=== PATIENT | male | born 1985 | race Caucasian/White ===

== ENCOUNTER 2024-11-16 10:31 | Emergency (ER) | payer BC, SELFPAY ==
[2024-11-16 10:34] VITALS: BP 161/96; PULSE 104; RESP 20; TEMP 36.8; O2SAT 97; BMI 43.8
--- NOTE | 2024-11-16 10:52 | ED.GENADULT ---
HPI - General Adult General Chief complaint: Flank Pain Stated complaint: kidney stone attack Time Seen by Provider: 11/16/24 10:51 History of Present Illness HPI narrative: Pt reports he has had 40 minute waves of back pain since yesterday . Pt recently returned from travel, of 7 hours driving yesterday. Pt also feels as if some abnormal urine production. Pain is centered on lower left love handle. Pt reports pain can only be relieved when he sits on the toilet. Rates pain currently 12/26. Pt feels constipated for me. Reports his last normal BM was on Friday night when he pooped so hard that the tip of my chely went numb. 39-year-old man presenting to the emergency department with concern of ?kidney stone attack?. Does not have a personal or family history of kidney stones. Began yesterday after a long drive. Thought maybe he just done something to his back. Had a tough night of continued waves of pain. Describes a squeezing in the left flank area. He only gets relief of this discomfort when he goes to sit on the toilet and has actually managed to fall asleep on the toilet overnight sounds like repeatedly. Two days ago had an explosive bowel movement and then a very small amount yesterday. Not passing gas. Does not have a history of abdominal surgeries. He would appreciate some relief of the pain. He is not nauseated. No hematuria noted. In fact he only has been able to get trace amounts are small amounts of urine out with each effort. Related Data Home Medications ?Medication ?Instructions ?Recorded ?Confirmed vit C 250 mg-vit E 90 mg-zinc 40 1 tab PO BID 11/16/24 11/16/24 mg-copper 1 [id number] capsule ([facility] AREDS-2) Previous Rx's ?Medication ?Instructions ?Recorded tamsulosin 0.4 mg capsule (Flomax) 0.4 mg PO DAILY #15 caps 11/16/24 Allergies Allergy/AdvReac Type Severity Reaction Status Date / Time No Known Drug Allergies Allergy Verified 11/16/24 10:41 Review of Systems Status of ROS: Reports: 6 or more systems reviewed and unremarkable except as noted in History and below PFSH PFSH Social History Smoking Status: Never smoker Do you use any of these nicotine containing products: None Second hand tobacco smoke exposure: No How often do you have a drink containing alcohol: monthly or less How many standard drinks containing alcohol do you have on a typical day: 1 or 2 How often do you have six or more drinks on one occasion: Never AUDIT-C Alcohol total score: 1 Non-prescribed substance use: denies use Exam Narrative: Exam Narrative: Pleasant. Seems uncomfortable. Skin is warm and dry. Well-perfused peripherally. No extremity edema. Abdomen is overweight. Soft. He is sore to palpation in the left low abdomen without peritoneal signs. Heart in elevated rate and regular rhythm. Lungs are clear. Const: Vital Signs, click to edit/add: Vital Signs - 24 hr 11/16/24 10:34 Temperature 98.3 F Pulse Rate [Pulse Oximeter] 104 H Respiratory Rate 20 Blood Pressure [Ri ght Upper Arm] 161/96 H Pulse Oximetry 97 Oxygen Delivery Me thod Room Air Documenting provider has reviewed patient's vital signs: yes Course Vital Signs Vital signs: Initial Vital Signs Temperature 98.3 F 11/16/24 10:34 Temperature Source Temporal Artery Scan 11/16/24 10:34 Pulse Rate 104 H 11/16/24 10:34 Respiratory Rate 20 11/16/24 10:34 Blood Pressure 161/96 H 11/16/24 10:34 Blood Pressure Mean 117 H 11/16/24 10:34 Blood Pressure Position Sitting 11/16/24 10:34 Pulse Oximetry 97 11/16/24 10:34 Oxygen Delivery Method Room Air 11/16/24 10:34 Vital Signs Temperature 98.3 F 11/16/24 10:34 Pulse Rate 104 H 11/16/24 10:34 Respiratory Rate 20 11/16/24 10:34 Blood Pressure 161/96 H 11/16/24 10:34 Pulse Oximetry 97 11/16/24 10:34 Oxygen Delivery Method Room Air 11/16/24 10:34 Temperature 98.3 F 11/16/24 10:34 Pulse Rate 82 11/16/24 12:56 Respiratory Rate 18 11/16/24 12:56 Blood Pressure 139/75 11/16/24 12:56 Pulse Oximetry 99 11/16/24 12:56 Oxygen Delivery Method Room Air 11/16/24 12:56 Medications Administered Medications: Discontinued Medications Generic Name Dose Route Start Last Admin Trade Name Freq PRN Reason Stop Dose Admin Hydromorphone HCl 0.5 mg 11/16/24 14:02 11/16/24 14:09 Hydromorphone 0.5 Mg/0.5 Ml Inj IVP 11/16/24 14:03 0.5 mg ONCE ONE Administration Sodium Chloride 500 mls @ 500 mls/hr 11/16/24 11:25 11/16/24 12:55 0.9 % Sodium Chloride 500 Ml IV 11/16/24 12:24 Infused .Q1H ONE Infusion Ketorolac Tromethamine 30 mg 11/16/24 11:00 11/16/24 11:32 Ketorolac 30 Mg/Ml Inj IVP 11/16/24 11:01 30 mg ONCE ONE Administration Morphine Sulfate 4 mg 11/16/24 11:00 11/16/24 11:32 Morphine 4 Mg/Ml Inj IVP 11/16/24 11:01 4 mg ONCE ONE Administration Morphine Sulfate 4 mg 11/16/24 12:59 11/16/24 13:06 Morphine 4 Mg/Ml Inj IVP 11/16/24 13:00 4 mg ONCE ONE Administration Tamsulosin HCl 0.4 mg 11/16/24 14:02 11/16/24 14:09 Tamsulosin Hcl 0.4 Mg Capsule PO 11/16/24 14:03 0.4 mg ONCE ONE Administration Medical Decision Making MDM Narrative Medical decision making narrative: Ureteral stone and colic certainly is in differential. Urinary retention may be contributing similar symptoms. Not certain of constipation without could certainly predispose to urinary retention. Urinary tract infection? Doubtful. He would appreciate some pain management. IV initiated. Given IV fluids, ketorolac and morphine. Bladder scan does not show significant urinary retention. Opiate dosing repeated with recurrence of intense pain. Have been operating without CT imaging available this morning in the emergency department. Urinalysis does have some blood present. Non contrasted CT of abdomen pelvis independently reviewed by me does show a moderate amount of fat stranding about the left kidney. There is some [id number] hydronephrosis. There looks to be is approximately 3 mm stone at the left ureteral vesicular junction or perhaps already in the bladder. Indication: LEFT FLANK AND LOWER ABD PAIN Technique: Noncontrast CT of the abdomen and pelvis was obtained. Please note that all CT scans at this facility use dose modulation, iterative reconstruction, and/or weight-based dosing when appropriate to reduce radiation dose to as low as reasonably achievable. Comparison: None. Findings: Lower thorax: Normal. Liver and biliary tree: Normal noncontrast appearance. Gallbladder: Normal. Spleen: Normal noncontrast appearance. Pancreas: Normal noncontrast appearance. Adrenal glands: Normal noncontrast appearance. Kidneys and ureters: Moderate left hydroureteronephrosis with 3 millimeter obstructing calculus at the left ureterovesical junction (2/155). Moderate left perinephric fat stranding. Gastrointestinal tract: Small to moderate stool burden. No evidence of acute appendicitis. No evidence of bowel obstruction. Peritoneal cavity: Moderate left perinephric fat stranding. Bladder: Normal. Pelvic organs: Normal. Vasculature: Normal noncontrast appearance. Lymph nodes: Normal. Abdominal wall: Normal. Musculoskeletal: Normal. Impression: Moderate left hydroureteronephrosis with 3 millimeter obstructing calculus at the left ureterovesical junction. Moderate left perinephric fat stranding. Please note that all CT scans at this facility use dose modulation, iterative reconstruction, and/or weight-based dosing when appropriate to reduce radiation dose to as low as reasonably achievable. Dictated by Manuel Pérez MD @ 11/16/2024 1:50:28 PM Given another dose of pain medication before leaving the emergency department. Also Flomax. See patient discharge plan for further discussion Stay well-hydrated. Follow-up if pain persisting at 4-5 days. Be seen otherwise for uncontrolled pain, intractable vomiting, fever. Strain your urine over this next week. Take Flomax until are confident of stone passage. Can take up to 800 mg of ibuprofen per dose. If needed also prescribing Percocet from [facility]. Lab Data Lab results reviewed: Yes I reviewed the patient's lab results Labs: Lab Results 11/16/24 Range/Units 11:30 WBC 11.83 H (4.50-11.00) K/uL RBC 4.89 (4.30-5.90) m/uL Hgb 14.7 (13.5-17.5) gm/dL Hct 41.8 (37.0-53.0) % MCV 86 (80-100) fL MCH 30 (26-34) pg MCHC 35 (32-36) gm/dL RDW Coeff of Shyla 12.6 (11.5-15.5) % Plt Count 277 (140-440) K/uL Neut % (Auto) 86.4 H (42.0-72.0) % Lymph % (Auto) 7.4 L (20-44) % Grand % (Auto) 5.9 (0.0-11.0) % Eos % (Auto) 0.0 (0.0-7.0) % Baso % (Auto) 0.0 (0.0-3.0) % Neut # (Auto) 10.20 H (1.7-7.0) K/uL Lymph # (Auto) 0.90 (0.90-2.90) K/uL Grand # (Auto) 0.70 (0.00-0.90) K/UL Eos # (Auto) 0.00 (0.00-0.50) K/uL Baso # (Auto) 0.00 (0.00-0.30) K/uL Abs Immat Gran (auto) 0.00 (0.00-0.30) K/uL Imm/Tot Granulo (auto) 0.3 % Sodium 133 L (135-149) mmol/L Potassium 3.5 L (3.6-5.1) mmol/L Chloride 102 (96-114) mmol/L Carbon Dioxide 20 (20-32) mmol/L Anion Gap 11 (7-15) mEq/L BUN 17 (5-24) mg/dL Creatinine 1.2 (0.5-1.5) mg/dL Estimated Creat Clear 89.81 Estimated GFR 78 ml/min Glucose 141 H (60-115) mg/dL Calcium 9.0 (8.4-10.6) mg/dL Urine Color Yellow (Yellow) Urine Appearance Clear (Clear) Urine pH 6.0 (5.0-8.5) Ur Specific [place] 1.025 (1.000-1.030) Urine Protein 1+ A (Negative) Urine Glucose (UA) 1+ A (Negative) Urine Ketones 1+ A (Negative) Urine Blood 2+ A (Negative) Urine Nitrite Negative (Negative) Urine Bilirubin Negative (Negative) Urine Urobilinogen 0.2 (0.2-1.0) Ur Leukocyte Esterase Negative (Negative) Urine RBC 0-2 (0-2) Urine WBC 2-5 (0-5) Ur Squamous Epith Cells Few (None-Few) Urine Bacteria Few A (None) Urine Mucus Moderate A (None) Urine Yeast Moderate A (None) Discharge Plan Discharge Clinical Impression: Left ureteral stone, Ureteral colic, Constipation Patient Disposition: Home w/ Parent or Adult Condition: Improved Additional Instructions: Stay well-hydrated. Follow-up if pain persisting at 4-5 days. Be seen otherwise for uncontrolled pain, intractable vomiting, fever. Strain your urine over this next week. Take Flomax until are confident of stone passage. Can take up to 800 mg of ibuprofen per dose. If needed also prescribing Percocet from [facility]. Prescriptions: New tamsulosin [Flomax] 0.4 mg capsule 0.4 mg PO DAILY Qty: 15 0RF No Action [facility] AREDS-2 250-90-40-1 mg capsule 1 tab PO BID Follow Up/Referrals: Provider,Not a Local [Primary Care Provider, Family Practice] Stand Alone Forms: [employer] Info Instructions
[2024-11-16] MEDS: 0.9 % SODIUM CHLORIDE 500 ML 500 ML IV (11:32)
[2024-11-16] MEDS: MORPHINE 4 MG/ML INJ IVP ×2 (11:32→13:06)
--- OUTSIDE RECORDS SUMMARY | 2024-11-16 11:36 | XMS_ITS | Encounter Summary ---
Author Organization [facility] Address [address] [place] [address] Care Team Providers Care Hogshead Hooper Name Role Phone Carlos Healy M.D. Unavailable Unavaila ble Tim Fitzpatrick M.D. Unavailable [phone] Tim Fitzpatrick M.D. Primary Care Provider [phone] Encounter Details Date Type Department Care Team (Latest Contact Info) Description 06/04/2022 MYC Patient Message [facility] [address] [place] [phone] Mychart, Default Provider [address] [facility] [address] [place] [address] Questionnaire Submission Social History Tobacco Use Types Packs/Day Years Used Date Smoking Tobacco: Never Smokeless Tobacco: Never Alcohol Use Standard Drinks/Week Comments Yes 0 (1 standard drink = 0.6 oz pur e alcohol) once a month PHQ-2 Answer Date Recorded PHQ-2 Score 0 05/15/2022 Sex and Gender Information Value Date Recorded Sex Assigned at Male 05/15/2024 6:14 PM KST OPERATOR Legal Sex Male 2:26 PM CDT Gender Identity Male 05/15/2024 6:14 PM KST OPERATOR Sexual Orientation Not on file documented as of this encounter Plan of Treatment Not on file documented as of this encounter Visit Diagnoses Not on filedocumented in this encounter Additional Health Concerns Assessment Noted Time PHQ-2 Depression Total Score: 0 05/15/20 22 8:39 AM KST OPERATOR documented as of this encounter Care Teams Hogshead Hooper Relationship Specialty Start Date End Date Tim Fitzpatrick M.D. [address] [address] PCP - General Family Practice 05/15/22 Carlos Healy M.D. Referring Provider Otolaryngology 03/31/15 Tim Fitzpatrick M.D. [address] [address] Referring Provider Family Practice 05/15/22 documented as of this encounter
--- OUTSIDE RECORDS SUMMARY | 2024-11-16 11:36 | XMS_ITS | Referral Summary ---
Author Organization [facility] Address [address] [place] [address] Care Team Providers Care Bench Inspector Name Role Phone Pcp, None Primary Care Provider Unavailabl e Allergies No known active allergies Medications No known medications Active Problems No known active problems Social History Tobacco Use Types Packs/Day Years Used Date Smoking Tobacco: Never Smokeless Tobacco: Never Tobacco Cessation:Counseling Given: Not Answered Alcohol Use Standard Drinks/Week Comments Not Asked 0 (1 standard drink = 0.6 oz pur e alcohol) rarely Sex and Gender Information Value Date Recorded Sex Assigned at Not on file Legal Sex Male 4:11 PM INDUSTRIAL RETROFIT DESIGNER Gender Identity Not on file Sexual Orientation Not on file Last Filed Vital Signs Vital Sign Reading Time Taken Comments Blood Pressure 147/93 04/28/2023 5:23 PM INDUSTRIAL RETROFIT DESIGNER Pulse 78 04/28/2023 5:23 PM INDUSTRIAL RETROFIT DESIGNER Temperature 37.1 C (98.7 F) 04/28/2023 5:23 PM INDUSTRIAL RETROFIT DESIGNER Respiratory Rate 18 04/28/2023 5:23 PM INDUSTRIAL RETROFIT DESIGNER Oxygen Saturation 98% 04/28/2023 5:23 PM INDUSTRIAL RETROFIT DESIGNER Inhaled Oxygen Concentration - - Weight - - Height - - Body Mass Index - - Plan of Treatment Not on file Insurance [address] [place] [address] [facility] PPO [facility] PPO Care Teams Bench Inspector Relationship Specialty Start Date End Date Pcp, [place] [facility] [address] PCP - General 04/28/23
--- OUTSIDE RECORDS SUMMARY | 2024-11-16 11:36 | XMS_ITS | Clinical Summary ---
Author Organization [facility] Address [address] [place] [address] Care Team Providers Care Nickel Operator Name Role Phone Pcp, None Primary Care [...] on file Legal Sex Male 4:11 PM INSIDE SALES ASSISTANT Gender Identity Not on file Sexual Orientation Not on file Last Filed Vital Signs Vital Sign Reading Time Taken Comments Blood Pressure 147/93 04/28/2023 5:23 PM INSIDE SALES ASSISTANT Pulse 78 04/28/2023 5:23 PM INSIDE SALES ASSISTANT Temperature 37.1 C (98.7 F) 04/28/2023 5:23 PM INSIDE SALES ASSISTANT Respiratory Rate 18 04/28/2023 5:23 PM INSIDE SALES ASSISTANT Oxygen Saturation 98% 04/28/2023 5:23 PM INSIDE SALES ASSISTANT Inhaled Oxygen Concentration - - Weight - - Height - - Body Mass Index - - Plan of Treatment Health Maintenance Due Date Last Done Comments Annual Physical 1984 DTaP,Tdap,and Td Vaccines (1 - Tdap) 11/16/2003 COVID-19 Vaccine ( season) 2024 02/03/2023, 01/23/2022, 03/18/2021, Additional history exists Annual Depression Screening 05/19/2024 Influenza Vaccine (Season Ended) 2025 02/03/2023, 01/23/2022, 02/20/2021 Meningococcal B Vaccine Aged Out No l onger eligible based on patient's age to complete this topic Pneumococcal Vaccine: to 50yrs Aged Out No longer eligible based on patient's age to complete this topic Insurance [facility] PPO BS PPO [facility] [address] Care Teams Nickel Operator Relationship Specialty Start Date End Date Pcp, [place] [address] PCP - General 04/28/23
--- OUTSIDE RECORDS SUMMARY | 2024-11-16 11:37 | XMS_ITS | Clinical Summary ---
Author Organization [facility] Address [address] [address] Care Team Providers Care Welt Butter Hand Name Role Phone Carlos Healy M.D. Unavailable Unavaila ble Tim Fitzpatrick M.D. Unavailable [phone] Tim Fitzpatrick M.D. Primary Care Provider [phone] Allergies Active Allergy Reactions Criticality Noted Date Comments Levonorgestrel-Ethinyl Estrad Pruritus (itching without rash) Medium 04/27/2021 Medications gabapentin (Neurontin) 300 mg capsuleIndicati ons:Herpes zoster otitis externa Take 1 capsule by mouth three times daily as needed (pain). 30 capsule 06/05/2022 Active Active Problems Problem Noted Date Diagnosed Date Stress 05/31/2024 History of herpes zoster 05/15/2023 Elevated blood pressure read ing without diagnosis of hypertension 05/15/2023 History of COVID-19 05/15/2022 Sinusitis, chronic 09/22/2014 Resolved Problems Problem Noted Date Diagnosed Date Resolved Date Deviated nasal septum 09/22/20142014 Immunizations Immunization Administration Dates Next Due Influenza Vaccine (FLUARIX) (6 Months to Adult) 02/03/2023,01/23/2022,02/20/2021 Influenza Vaccine (Trivalent )(PF), 3 Yrs-Adult 03/29/2024 Influenza, Seasonal, Injectable - External 03/29 Influenza, Unspecified Formu lation - External 02/16/2016 Tdap Vaccine 12/05/2017 Zoster Vaccine (Shingrix) (5 0 Yrs and Over, 2 Dose Series) 07/28/2023,05/15/2023 Family History Medical History Relation Comments Cancer - Non-melanoma Skin Father No PMH Mother Relation Status Comments Father Alive Mother Alive Social History Tobacco Use Types Packs/Day Years Used Date Smoking Tobacco: Never Smokeless Tobacco: Never Tobacco Cessation:Counseling Given: Not Answered Alcohol Use Standard Drinks/Week Comments Yes 0 (1 standard drink = 0.6 oz pur e alcohol) once a month PHQ-2 Answer Date Recorded PHQ-2 Score 0 05/31/2024 Sex and Gender Information Value Date Recorded Sex Assigned at Male 05/15/2024 6:14 PM LITHOGRAPH OPERATOR Legal Sex Male 2:26 PM CDT Gender Identity Male 05/15/2024 6:14 PM LITHOGRAPH OPERATOR Sexual Orientation Not on file Last Filed Vital Signs Vital Sign Reading Time Taken Comments Blood Pressure 138/81 05/31/2024 9:17 AM LITHOGRAPH OPERATOR Pulse 90 05/31/2024 9:15 AM LITHOGRAPH OPERATOR Temperature 35.8 C (96.4 F) 05/31/2024 9:15 AM LITHOGRAPH OPERATOR Respiratory Rate 17 05/31/2024 9:15 AM LITHOGRAPH OPERATOR Oxygen Saturation 99% 05/31/2024 9:15 AM LITHOGRAPH OPERATOR Inhaled Oxygen Concentration - - Weight 144.7 kg (319 lb) 05/31/2024 9:15 AM LITHOGRAPH OPERATOR Height 182.9 cm (6' 0.01) 05/31/2024 9:15 AM CS T Body Mass Index 43.25 05/31/2024 9:15 AM LITHOGRAPH OPERATOR Plan of Treatment Health Maintenance Due Date Last Done Comments COVID-19 VACCINE ( season) 2024 02/03/2023, 01/23/2022, 03/18/2021, Additional history exists DEPRESSION SCREENING 05/31/2025 05/31/2024, 05/15/2023, 05/15/2022 TDAP/TD VACCINE (2 - Td or Tdap) 12/06/2027 12/05/2017 ZOSTER SERIES VACCINE (2 of 2) 2034 07/28/2023, 05/15/2023 Adult RSV VACCINE (1 - 1-dose 75+ series) 11/16/2059 HIV SCREENING Completed 12/05/2017, 12/05/2017 HEPATITIS C SCREENING Completed 04/27/2021 INFLUENZA VACCINE Completed 03/29/2024, , 02/03/2023, Additional history exists Pneumococcal Vaccine: Childhood and At-Risk Adult <65 yo Series Aged Out No longer eligible based on patient's age to complete this topic Insurance BC/BS PPO BC/BS PPO BC/BS PPO Care Teams Welt Butter Hand Relationship Specialty Start Date End Date Tim Fitzpatrick M.D. [address] [address] PCP - General Family Practice 05/15/22 Carlos Healy M.D. Referring Provider Otolaryngology 03/31/15 Tim Fitzpatrick M.D. 47 [facility] [address] [address] Referring Provider Family Practice 05/15/22
--- OUTSIDE RECORDS SUMMARY | 2024-11-16 11:37 | XMS_ITS | Encounter Summary ---
Author Organization [facility] Address [address] [address] Care Team Providers Care Material Stress Tester Name Role Phone Carlos Healy M.D. Unavailable Unavaila ble Tim Fitzpatrick M.D. Unavailable [phone] Tim Fitzpatrick M.D. Primary Care Provider [phone] Encounter Details Date Type Department Care Team (Late st Contact Info) Description 05/27/2022 [facility] Patient Message [address] [address] Tim Fitzpatrick M.D. [address] [place] [address] TMJ-related issues (I think) Social History Tobacco Use Types Packs/Day Years Used Date Smoking Tobacco: Never Smokeless Tobacco: Never Alcohol Use Standard Drinks/Week Comments Yes 0 (1 standard drink = 0.6 oz pur e alcohol) once a month PHQ-2 Answer Date Recorded PHQ-2 Score 0 05/15/2022 Sex and Gender Information Value Date Recorded Sex Assigned at Male 05/15/2024 6:14 PM CLINICAL TRANSFORMATION SPECIALIST Legal Sex Male 2:26 PM CDT Gender Identity Male 05/15/2024 6:14 PM CLINICAL TRANSFORMATION SPECIALIST Sexual Orientation Not on file documented as of this encounter Plan of Treatment Not on file documented as of this encounter Visit Diagnoses Not on filedocumented in this encounter Additional Health Concerns Assessment Noted Time PHQ-2 Depression Total Score: 0 05/15/20 22 8:39 AM CLINICAL TRANSFORMATION SPECIALIST documented as of this encounter Care Teams Material Stress Tester Relationship Specialty Start Date End Date Tim Fitzpatrick M.D. [address] [id number] PCP - General Family Practice 05/15/22 Carlos Healy M.D. Referring Provider Otolaryngology 03/31/15 Tim Fitzpatrick M.D. [address] [address] Referring Provider Family Practice 05/15/22 documented as of this encounter
--- OUTSIDE RECORDS SUMMARY | 2024-11-16 11:37 | XMS_ITS | Clinical Summary ---
Author Organization [facility] Address [address] [place] [address] Care Team Providers Care Optical Instrument Specialist Name Role Phone Unavailable Primary Care Provider Unavailabl e Source Comments In the event that this is information that is protected by federal Confidentiality of Substance UseDisorder Patient Records, 42 CFR Part 2 prohibits the unauthorized disclosure of these records.[facility] Allergies No known active allergies Medications * This document contains information received from the source organization and may not represent a complete record from that organization. cetirizine (ZYRTEC) 10 mg tablet Take 10 mg by mouth daily. Active Active Problems Problem Noted Date Diagnosed Date Preventative health care 12/05/2017 Assessment & Plan (12/05/2017 3:51 PM CDT): Will check blood work today. Patient is not fasting. Will give tdap and do an STD screen. He had a normal CBC and CMP in 05/2017 - will not repeat. Class 2 obesity due to exces s calories without serious comorbidity with body mass index (BMI) of 39.0 to 39.9 in adult 12/05/2017 Assessment & Plan (12/05/2017 3:52 PM CDT): Patient counseled on diet and exercise. Goal of 9684-1593 calories a day to lose weight. Recommend downloading my fitness pal application to help lose weight. Immunizations Immunization Administration Dates Next Due Influenza virus vaccine, unspecified formulation 02/16/2016 Tdap 12/05/2017 Family History Medical History Relation Name Comments Cancer Father skin cancer Diabetes Father Hypertension Father No Known Problems Mother Cancer Paternal Grandfather lung ca ncer Relation Name Status Comments Father Mother Paternal Grandfather Social History Tobacco Use Types Packs/Day Years Used Date Smoking Tobacco: Never Smokeless Tobacco: Never Alcohol Use Standard Drinks/Week Comments Yes 0 (1 standard drink = 0.6 oz pur e alcohol) 2 drinks a month [employer] Answer Date Recorded Please choose the link for ' [employer]'above to launch [employer], a personalized community referral platform for a patient's SDOH needs. 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 Not on file Not on file Last Filed Vital Signs Vital Sign Reading Time Taken Comments Blood Pressure 148/82 05/22/2018 4:32 PM HEAD OF D[employer]VERTISING [employer]GR[employer] Pulse 82 12/05/2017 3:12 PM CDT Temperature - - Respiratory Rate - - Oxygen Saturation 98% 12/05/2017 3:12 PM CDT Inhaled Oxygen Concentration - - Weight 128.3 kg (282 lb 14.4 oz) 12/05/2017 3:12 PM CDT Height 181 cm (5' 11.25) 12/05/2017 3:12 PM CDT Body Mass Index 39.18 12/05/2017 3:12 PM CDT Plan of Treatment Health Maintenance Due Date Last Done Comments HEPATITIS C SCREENING 2002 Diabetes Screening 12/05/2020 12/05/2017 LIPID TESTING 12/05/2022 12/05/2017 COVID-19 VACCINE (1 - 2023-2 5 season) 2024 INFLUENZA (#1) 2025 02/16/2016 DTAP/TDAP/TD (2 - Td or Tdap) 12/06/2027 12/05/2017 HIV SCREENING Completed 12/05/2017 MENINGOCOCCAL B (MENB) Aged Out No lo nger eligible based on patient's age to complete this topic Pneumococcal 0-49 Aged Out No longer eligible based on patient's age to complete this topic Procedures Procedure Name Priority Date/Time Associated Diagnosis Comments HEMOGLOBIN A1C Routine 12/05/2017 3:52 PM CDT Preventative health care LIPID PANEL (AMA) W/LDL CALC Routine 12/05/2017 3:52 PM CDT Preventative health care HIV ANTIGEN/ANTIBODY,REFL EX CONFIRMATION Routine 12/05/2017 3:52 PM CDT Preventative health care from Last 3 Months or Most Recently Relevant to Health Maintenance Results * HIV 1/2 Antigen/Antibody,Reflex Confirmation (12/05/2017 3:52 PM CDT) HIV Antigen/Antibod y Nonreactive Nonreactive [facility] Comment:HIV-1p24 Ag and HIV- 1/HIV-2 Ab: The results of this test, as for all personal health information, must remain confidential. [employer] creates access log entries when results are viewed. Because these access log entries are subsequently audited to verify appropriate access, you may be contacted to explain your relationship to this patient. If you require access to this information in order to provide care for this patient, please proceed; otherwise, please exit this patient's record. Blood specimen (specimen) 12/05/2017 3:52 PM CDT 12/05/2017 5:31 PM CDT [facility] - 12/05/2017 7:11 PM CDT ORDERING DEPARTMENT:[facility] IM [address] ([place]) Ordering Provider:GENIE FOWLER Call Back us Genie Fowler MD CHEMISTRY ORDERABLES Fin al Result [facility] [address] [place] [address] * Hemoglobin A1c (12/05/2017 3:52 PM CDT) Hemoglobin A1C 5.1 4.0 - 5.6 % [facility] Blood specimen (specimen) 12/05/2017 3:52 PM CDT 12/05/2017 4:35 PM CDT [facility] - 12/05/2017 5:08 PM CDT ORDERING DEPARTMENT:[facility] IM [address] ([place]) Ordering Provider:GENIE FOWLER Call Back us Genie Fowler MD CHEMISTRY ORDERABLES Fin al Result Performing Organization Address City/[facility] Co de Phone Number [facility] [address] [place] [address] * Lipid Panel(AMA) w/LDL Calculated (12/05/2017 3:52 PM CDT) Total Cholesterol 158 mg/dL NO [facility] Comment:Guideline: < 170 mg/ dl, Optimal (Not to be construed as a target for drug therapy.) Triglycerides 156 mg/dL [facility] Comment: Guideline: < 100 mg/dl, Optimal (Not to be construed as a target for drug therapy.) > 499 mg/dl, Highly abnormal (Please review with your medical team.) HDL Cholesterol 38 mg/dL [facility] Comment:Guideline: > 50 mg/d l, Optimal (Not to be construed as a target for drug therapy.) LDL Cholesterol 89 mg/dL [facility] Comment: Guideline: < 100 mg/dl, Optimal (Not to be construed as a target for drug therapy.) > 189mg/dl, Highly abnormal (Please review with your medical team.) Non-HDL Cholesterol 120 mg/dL [facility] Comment: Guideline: < 120 mg/dl, Optimal (Not to be construed as a target for drug therapy.) > 219 mg/dl, Highly abnormal (Please review with your medical team.) Blood specimen (specimen) 12/05/2017 3:52 PM CDT 12/05/2017 4:37 PM CDT Narrative [facility] - 12/05/2017 5:04 PM CDT Patient should fast 12 hours prior to collection, unless instructed differently by a physician. ORDERING DEPARTMENT:[facility] IM [address] ([place]) Ordering Provider:GENIE FOWLER Call Back us Genie Fowler MD CHEMISTRY ORDERABLES Fin al Result Performing Organization Address City/[facility]/ZIP Co de Phone Number [facility] [address] [place] [address] from Last 3 Months or Most Recently Relevant to Health Maintenance Insurance BCBS - OUT OF STATE PPO * Guarantor: Margarito Ward Account Type Relation to Patient Date of Phone Billing Address [facility] 1985 [address] [place] [address]
--- OUTSIDE RECORDS SUMMARY | 2024-11-16 11:37 | XMS_ITS | Encounter Summary ---
Author Organization [facility] Address [address] [place] [address] Care Team Providers Care Impregnator And Drier Name Role Phone No, Pcp Primary Care Provider Unavailabl Carlos Dill M.D. Unavailable Unavaila ble Tim Fitzpatrick M.D. Unavailable [phone] Tim Fitzpatrick M.D. Primary Care Provider [phone] Encounter Details Date Type Department Care Team (Latest Contact Info) Description 03/08/2016 [facility] Patient Message [place] [facility] ([facility]) [address] [place] [address] Carlos Healy M.D. RE: Non-Urgent Medical Question Social History Tobacco Use Types Packs/Day Years Used Date Smoking Tobacco: Never Smokeless Tobacco: Never Sex and Gender Information Value Date Recorded Sex Assigned at Male 05/15/2024 6:14 PM TIMBER SURVEYOR Legal Sex Male 2:26 PM CDT Gender Identity Male 05/15/2024 6:14 PM TIMBER SURVEYOR Sexual Orientation Not on file documented as of this encounter Plan of Treatment Not on file documented as of this encounter Visit Diagnoses Not on filedocumented in this encounter Care Teams Impregnator And Drier Relationship Specialty Start Date End Date No, Pcp [address] [place] [address] PCP - General 08/30/14 05/14/22 Tim Fitzpatrick M.D. [address] [place] [address] [id number] PCP - General Family Practice 05/15/22 Carlos Healy M.D. Referring Provider Otolaryngology 03/31/15 Tim Fitzpatrick M.D. [address] [place] [address] Referring Provider Family Practice 05/15/22 documented as of this encounter
--- OUTSIDE RECORDS SUMMARY | 2024-11-16 11:37 | XMS_ITS | Encounter Summary ---
Author Organization [facility] Address [address] [address] Care Team Providers Care Activities Director Name Role Phone Carlos Healy M.D. Unavailable Unavaila ble Tim Fitzpatrick M.D. Unavailable [phone] Tim Fitzpatrick M.D. Primary Care Provider [phone] Encounter Details Date Type Department Care Team (Late st Contact Info) Description 06/03/2022 [facility] Patient Message [facility] Family Medicine [address] [place] [address] Tim Fitzpatrick M.D. [address] [place] [address] Blisters on ear developed and burst Social History Tobacco Use Types Packs/Day Years Used Date Smoking Tobacco: Never Smokeless Tobacco: Never Alcohol Use Standard Drinks/Week Comments Yes 0 (1 standard drink = 0.6 oz pur e alcohol) once a month PHQ-2 Answer Date Recorded PHQ-2 Score 0 05/15/2022 Sex and Gender Information Value Date Recorded Sex Assigned at Male 05/15/2024 6:14 PM OCCUPATIONAL THERAPY TECHNICIAN Legal Sex Male 2:26 PM CDT Gender Identity Male 05/15/2024 6:14 PM OCCUPATIONAL THERAPY TECHNICIAN Sexual Orientation Not on file documented as of this encounter Miscellaneous Notes * Telephone Encounter - Felicia Kowalski R.N. - 06/04/2022 11:33 AM CST See telephone encounter 06/04 PATIONAL THERAPY TECHNICIAN documented in this encounter Plan of Treatment Not on file documented as of this encounter Visit Diagnoses Not on filedocumented in this encounter Additional Health Concerns Assessment Noted Time PHQ-2 Depression Total Score: 0 05/15/20 8:39 AM OCCUPATIONAL THERAPY TECHNICIAN documented as of this encounter Care Teams Activities Director Relationship Specialty Start Date End Date Tim Fitzpatrick M.D. [address] [address] PCP - General Family Practice 05/15/22 Carlos Healy M.D. Referring Provider Otolaryngology 03/31/15 Tim Fitzpatrick M.D. [address] [facility] [address] [address] Referring Provider Family Practice 05/15/22 documented as of this encounter
--- OUTSIDE RECORDS SUMMARY | 2024-11-16 11:37 | XMS_ITS | Referral Summary ---
Author Organization [facility] Address [address] [place] [address] Care Team Providers Care Crane Ladle Person Name Role Phone Jerry Soni MD Primary Care Provider [phone] Allergies Active Allergy Reactions Criticality Noted Date Comments Levonorgestrel-Ethinyl Estrad Pruritus Medium 2020 Medications cetirizine (ZYRTEC) 10 mg PO tablet take 10 mg by mouth. Active Guaifenesin 1,200 mg PO Ta12 take by mouth. Active Active Problems Problem Noted Date Diagnosed Date History of 2019 novel coronavirus disease (COVID -19) 04/27/2021 Class 3 severe obesity due t o excess calories without serious comorbidity with body mass index (BMI) of 40.0 to 44.9 in adult 12/05/2017 Overview (04/27/2021): Last Assessment & Plan: Patient counseled on diet and exercise. Goal of 2276-8153 calories a day to lose weight. Recommend downloading my fitness pal application to help lose weight. Sinusitis, chronic 09/22/2014 Immunizations Immunization Administration Dates Next Due COVID-19 (PF)VACCINE (PFIZER /[id number] 30MCG/0.3 ml INJECTION 03/18/2021,09/05/2020,08/14/2020 Influenza, injectable, quadr ivalent, preserv free 02/20/2021 Yeubfls-Uzjlkihrmk-Ittuselgq Pertussis (Tdap) Injection 12/05/2017 Social History Tobacco Use Types Packs/Day Years Used Date Smoking Tobacco: Never Smokeless Tobacco: Never Alcohol Use Standard Drinks/Week Comments Yes 0 (1 standard drink = 0.6 oz pur e alcohol) rarely Housing Stability Answer Date Recorded Mortgage Payment Concerns? Not on file 04/14 Number of Places Lived in the Last Year Not on f ile 04/14/2021 Unstable Housing? Not on file 04/14/2021 Sex and Gender Information Value Date Recorded Sex Assigned at Male 12/13/2020 2:36 PM CDT Legal Sex Male 12:28 AM CDT Gender Identity Male 12/13/2020 2:36 PM CDT Sexual Orientation Not on file Last Filed Vital Signs Vital Sign Reading Time Taken Comments Blood Pressure 136/84 04/27/2021 1:05 PM PLATE GLASS GRINDER Pulse 105 04/27/2021 1:05 PM PLATE GLASS GRINDER Temperature 36.9 C (98.5 F) 04/27/2021 1:05 PM PLATE GLASS GRINDER Respiratory Rate 21 04/27/2021 1:05 PM PLATE GLASS GRINDER Oxygen Saturation 99% 04/27/2021 1:05 PM PLATE GLASS GRINDER Inhaled Oxygen Concentration - - Weight 141 kg (310 lb) 04/27/2021 1:05 PM PLATE GLASS GRINDER Height 182.9 cm (6') 04/27/2021 1:05 PM PLATE GLASS GRINDER Body Mass Index 42.04 04/27/2021 1:05 PM PLATE GLASS GRINDER Plan of Treatment Not on file Procedures Procedure Name Priority Date/Time Associated Diagnosis Comments HEPATITIS C VIRUS ANTIBODY Routine 04/27/2021 12:25 PM PLATE GLASS GRINDER Need for hepatitis C screening test from Last 3 Months or Most Recently Relevant to Health Maintenance Results * Hepatitis C Virus Antibody ([id number]) (04/27/2021 12:25 PM PLATE GLASS GRINDER) HEP C AB <0.1 0.0 - 0.9 s/co ratio [facility] 1 Comment: Negative: < 0.8 Indeterminate: 0.8 - 0.9 Positive: > 0.9 The CDC recommends that a positive HCV antibody result be followed up with a HCV Nucleic Acid Amplification test ([id number]). 04/27/2021 12:2 5 PM PLATE GLASS GRINDER 04/26/2021 11:00 PM PLATE GLASS GRINDER Narrative [facility] - 04/28/2021 8:08 AM PLATE GLASS GRINDER Performed at: 01 - [facility] [address] [place], [place] [id number] Pumping Station Supervisor: Umberto Mohr PhD, Phone: [phone] us Jerry Soni MD LAB BLOOD ORDERABLES Final Res ult [facility] [address] [place] [phone] [facility] 1 from Last 3 Months or Most Recently Relevant to Health Maintenance Insurance [address] [place] [address] Care Teams Crane Ladle Person Relationship Specialty Start Date End Date Jerry Soni MD [address] [place] [phone] PCP - General Family Medicine 04/16/21
--- OUTSIDE RECORDS SUMMARY | 2024-11-16 11:37 | XMS_ITS | Encounter Summary ---
Author Organization [facility] Address [address] [place] [address] Care Team Providers Care Windows Deployment Technician Name Role Phone No, Pcp Primary Care Provider UnavailCarlos Fernández M.D. Unavailable Unavaila ble Tim Fitzptarick M.D. Unavailable [phone] Tim Fitzpatrick M.D. Primary Care Provider [phone] Encounter Details Date Type Department Care Team (Latest Contact Info) Description 03/24/2015 [facility] Patient Message [place] [facility] (ENT) [address] [place] [address] Carlos Healy M.D. Follow up Question Social History Tobacco Use Types Packs/Day Years Used Date Smoking Tobacco: Never Smokeless Tobacco: Never Sex and Gender Information Value Date Recorded Sex Assigned at Male 05/15/2024 6:14 PM SENIOR QUALITY METHODS SPECIALIST Legal Sex Male 2:26 PM CDT Gender Identity Male 05/15/2024 6:14 PM SENIOR QUALITY METHODS SPECIALIST Sexual Orientation Not on file documented as of this encounter Plan of Treatment Not on file documented as of this encounter Visit Diagnoses Not on filedocumented in this encounter Care Teams Windows Deployment Technician Relationship Specialty Start Date End Date No, Pcp [address] [place] [address] PCP - General 08/30/14 05/14/22 Tim Fitzpatrick M.D. [address] [place] [address] [address] PCP - General Family Practice 05/15/22 Carlos Healy M.D. Referring Provider Otolaryngology 03/31/15 Tim Fitzpatrick M.D. [address] [place] [address] Referring Provider Family Practice 05/15/22 documented as of this encounter
--- OUTSIDE RECORDS SUMMARY | 2024-11-16 11:37 | XMS_ITS | Clinical Summary ---
Author Organization [facility] Address [address] [place] [address] Care Team Providers Care Featheredger And Reducer Machine Name Role Phone Jerry Soni MD Primary Care Provider [phone] Allergies Active Allergy Reactions Criticality Noted Date [...] counseled on diet and exercise. Goal of 5439-7687 calories a day to lose weight. Recommend downloading my fitness pal application to help lose weight. Sinusitis, chronic 09/22/2014 Immunizations Immunization Administration Dates Next Due COVID-19 (PF)VACCINE (PFIZER /[id number] 30MCG/0.3 ml INJECTION 03/18/2021,09/05/2020,08/14/2020 Influenza, injectable, quadr ivalent, preserv free 02/20/2021 Nkrlrsv-Hxdzppawwn-Jklwpglpz Pertussis (Tdap) Injection 12/05/2017 Family History Relation Status Comments Father Alive Maternal Grandfather Maternal Grandmother Alive Mother Alive Paternal Grandfather Paternal Grandmother Sister Alive Social History Tobacco Use Types Packs/Day [...] Comments Blood Pressure 136/84 04/27/2021 1:05 PM STREETS AND BUILDINGS DECORATOR Pulse 105 04/27/2021 1:05 PM STREETS AND BUILDINGS DECORATOR Temperature 36.9 C (98.5 F) 04/27/2021 1:05 PM STREETS AND BUILDINGS DECORATOR Respiratory Rate 21 04/27/2021 1:05 PM STREETS AND BUILDINGS DECORATOR Oxygen Saturation 99% 04/27/2021 1:05 PM STREETS AND BUILDINGS DECORATOR Inhaled Oxygen Concentration - - Weight 141 kg (310 lb) 04/27/2021 1:05 PM STREETS AND BUILDINGS DECORATOR Height 182.9 cm (6') 04/27/2021 1:05 PM STREETS AND BUILDINGS DECORATOR Body Mass Index 42.04 04/27/2021 1:05 PM STREETS AND BUILDINGS DECORATOR Plan of Treatment Health Maintenance Due Date Last Done Comments HIV Screening 1985 HPV Vaccines (1 - Male 3-dos e series) 11/16/1999 COVID-19 Vaccine (4 - 2023-2 5 season) 2024 03/18/2021, 09/05/2020, 08/14/2020 Influenza Vaccine (Season Ended) 2025 01/23/2022, 02/20/2021 DTaP,Tdap and Td Vaccines (2 - Td or Tdap) 12/06/2027 12/05/2017 Hepatitis C Screening Completed 04/27/2021 Meningococcal B Aged Out No longer el igible based on patient's age to complete this topic Pneumococcal 7-64 Aged Out No longer eligible based on patient's age to complete this topic RSV Vaccine (Pediatric) Aged Out No l onger eligible based on patient's age to complete this topic Procedures Procedure Name Priority Date/Time Associated Diagnosis Comments HEPATITIS C VIRUS ANTIBODY Routine 04/27/2021 12:25 PM STREETS AND BUILDINGS DECORATOR Need for hepatitis C screening test from Last 3 Months or Most Recently Relevant to Health Maintenance Results * Hepatitis C Virus Antibody ([id number]) (04/27/2021 12:25 PM STREETS AND BUILDINGS DECORATOR) HEP C AB <0.1 0.0 - 0.9 s/co ratio [facility] 1 Comment: Negative: < 0.8 Indeterminate: 0.8 - 0.9 Positive: > 0.9 The CDC recommends that a positive HCV antibody result be followed up with a HCV Nucleic Acid Amplification test ([id number]). 04/27/2021 12:2 5 PM STREETS AND BUILDINGS DECORATOR 04/26/2021 11:00 PM STREETS AND BUILDINGS DECORATOR Narrative [facility] - 04/28/2021 8:08 AM STREETS AND BUILDINGS DECORATOR Performed at: 01 - [facility] [address] [id number] Manager Play: Umberto Mohr PhD, Phone: [phone] us Jerry Soni MD LAB BLOOD ORDERABLES Final Res ult [facility] [address] [place] [phone] [facility] 1 from Last 3 Months or Most Recently Relevant to Health Maintenance [place] [address] [place] [address] Care Teams Featheredger And Reducer Machine Relationship Specialty Start Date End Date Jerry Soni MD [address] [place] [phone] PCP - General Family Medicine 04/16/21
[2024-11-16 11:40] VITALS: O2SAT 97
--- NOTE | 2024-11-16 11:40 | CRLHL7_ITS ---
For Patients: As a result of the Century Cures Act, medical imaging exams and procedure reports are released immediately into your electronic medical record. You may view this report before your referring provider. If you have questions, please contact your health care provider. Indication: LEFT FLANK AND LOWER ABD PAIN Technique: Noncontrast CT of the abdomen and pelvis was obtained. Please note that all CT scans at this facility use dose modulation, iterative reconstruction, and/or weight-based dosing when appropriate to reduce radiation dose to as low as reasonably achievable. Comparison: None. Findings: Lower thorax: Normal. Liver and biliary tree: Normal noncontrast appearance. Gallbladder: Normal. Spleen: Normal noncontrast appearance. Pancreas: Normal noncontrast appearance. Adrenal glands: Normal noncontrast appearance. Kidneys and ureters: Moderate left hydroureteronephrosis with 3 millimeter obstructing calculus at the left ureterovesical junction (2/155). Moderate left perinephric fat stranding. Gastrointestinal tract: Small to moderate stool burden. No evidence of acute appendicitis. No evidence of bowel obstruction. Peritoneal cavity: Moderate left perinephric fat stranding. Bladder: Normal. Pelvic organs: Normal. Vasculature: Normal noncontrast appearance. Lymph nodes: Normal. Abdominal wall: Normal. Musculoskeletal: Normal. Impression: Moderate left hydroureteronephrosis with 3 millimeter obstructing calculus at the left ureterovesical junction. Moderate left perinephric fat stranding. Please note that all CT scans at this facility use dose modulation, iterative reconstruction, and/or weight-based dosing when appropriate to reduce radiation dose to as low as reasonably achievable. Dictated by Manuel Pérez MD @ 11/16/2024 1:50:28 PM (Electronically Signed)
[2024-11-16 11:45] LABS: Hematocrit 41.8 % (37.0-53.0); Hemoglobin* 14.7 gm/dL (13.5-17.5); Immature Granulocytes Pct Auto 0.3 %; Mean Corpuscular HGB Conc 35 gm/dL (32-36); Mean Corpuscular Hemoglobin 30 pg (26-34); Mean Corpuscular Volume 86 fL (80-100); RDW Coefficient of Variation % 12.6 % (11.5-15.5); Red Blood Count 4.89 m/uL (4.30-5.90); White Blood Count* 11.83 K/uL (4.50-11.00)
[2024-11-16 11:47] LABS: Immature Granulocytes Abs Auto 0.00 K/uL (0.00-0.30); Lymphocytes Absolute Auto 0.90 K/uL (0.90-2.90); Slide Review Reflex No
[2024-11-16 11:56] LABS: Appearance Urine Clear (Clear); Chloride* 102 mmol/L (96-114); Potassium* 3.5 mmol/L (3.6-5.1); Sodium* 133 mmol/L (135-149)
[2024-11-16 11:59] LABS: Anion Gap 11 mEq/L (7-15); Blood Urea Nitrogen* 17 mg/dL (5-24); Calcium* 9.0 mg/dL (8.4-10.6); Carbon Dioxide* 20 mmol/L (20-32); Creatinine* 1.2 mg/dL (0.5-1.5); Est. Creatinine Clearance* 89.81; Estimated Glomerular Filt Rate 78 ml/min; Glucose* 141 mg/dL (60-115)
[2024-11-16 12:56] VITALS: BP 139/75; PULSE 82; RESP 18; O2SAT 99
[2024-11-16] MEDS: TAMSULOSIN HCL 0.4 MG CAPSULE PO (14:09)
== END 2024-11-16 14:24 | disposition home or self-care (01) ==
PROVIDERS: Emergency Provider Family Medicine
DX: N23 Unspecified renal colic (principal); N20.1 Calculus of ureter
CPT/HCPCS: 36415; 74176; 80048; 81001; 85025; 87086; 94761; 96374; 96375; 99284; A9270; J1171; J1885; J2270; J7030